=== PATIENT | female | born 1980 | race Caucasian/White ===

== ENCOUNTER 2017-11-27 07:11 | Emergency (ER) | payer OTHER ==
[~2017-11-27] VITALS: Ht 167.6 cm; Wt 76.0 kg
[2017-11-27 07:18] VITALS: BP 125/82; PULSE 123; RESP 20; TEMP 97.9; O2SAT 99
[2017-11-27] MEDS ORDERED: SERO200T PO ×2 (07:24→10:10)
[2017-11-27 07:29] VITALS: BP 137/91; PULSE 109; RESP 19; O2SAT 97
--- NOTE | 2017-11-27 07:50 | PD ---
HPI Chief Complaint: Psychiatric Symptoms Time Seen by Provider: 07:38 Travel History International Travel<30 days: No Contact w/Intl Traveler<30days: No Traveled to known affect area: No History of Present Illness HPI 37-year-old female requesting psychiatric evaluation. Patient states that she has insomnia and hearing voices. Patient has history of bipolar disorder, anxiety and multi-personality disorder. Patient recently has a in the family. Patient states that she is stressing out. Patient denies any headache. Patient denies any chest pain or shortness of breath. Patient denies abdominal pain. Patient denies any medical problem. Patient denies any chance of being . Patient denies alcohol or drug abuse. PFSH Past Medical History Bipolar Disorder: Yes Anxiety: Yes Depression: Yes Cancer: No Cardiovascular Problems: No Diabetes: No Endocrine: No Gastrointestinal Disorders: No Genitourinary: No Hepatitis: No Hiatal Hernia: No Hypertension: No Immune Disorder: No Musculoskeletal: Yes (DEGENERATIVE DISC IN NECK) Neurologic: No Psychiatric: Yes Reproductive: Yes Respiratory: No Immunizations Current: Yes Thyroid Disease: No Tetanus Vaccination: Unknown Influenza Vaccination: Yes ?: Not LMP: 11/2017 Para: 2 Ovarian Cysts: Yes Past Surgical History AICD: No Gynecologic Surgery: Yes Joint Replacement: No Oral Surgery: Yes Pacemaker: No Other Surgery: Yes Social History Alcohol Use: No Tobacco Use: Yes (1/2 PPD) Substance Use: No (hx of ) Allergies-Medications (Allergen,Severity, Reaction): Coded Allergies: penicillin G (Unverified Allergy, Severe, RASH, 11/27/17) MILD RXN LONG AGO tramadol (Unverified Allergy, Severe, NAUSEA, DIARRHEA, 11/27/17) 03/10/13 DENIES ALLERGY Reported Meds & Prescriptions Reported Meds & Active Scripts Active Reported Seroquel (Quetiapine Fumarate) 200 Mg Tab 200 Mg PO BID Review of Systems General / Constitutional: No: Fever Eyes: No: Visual changes HENT: No: Headaches Cardiovascular: No: Chest Pain or Discomfort Respiratory: No: Shortness of Breath Gastrointestinal: No: Abdominal Pain Genitourinary: No: Dysuria Musculoskeletal: No: Pain Skin: No Rash Neurologic: No: Weakness Psychiatric: No: Depression Endocrine: No: Polydipsia Hematologic/Lymphatic: No: Easy Bruising Physical Exam Narrative GENERAL: Well-nourished, well-developed patient. SKIN: Focused skin assessment warm/dry. HEAD: Normocephalic. EYES: No scleral icterus. No injection or drainage. NECK: Supple, trachea midline. No JVD or lymphadenopathy. CARDIOVASCULAR: Regular rate and rhythm without murmurs, gallops, or rubs. RESPIRATORY: Breath sounds equal bilaterally. No accessory muscle use. GASTROINTESTINAL: Abdomen soft, non-tender, nondistended. MUSCULOSKELETAL: No cyanosis, or edema. BACK: Nontender without obvious deformity. No CVA tenderness. Data Data Last Documented VS Vital Signs Date Time Temp Pulse Resp B/P (MAP) Pulse Ox O2 Delivery O2 Flow Rate FiO2 11/27/17 07:29 109 19 137/91 (106) 97 Room Air 11/27/17 07:18 97.9 Orders Orders Complete Blood Count With Diff (11/27/17 07:45) Comprehensive Metabolic Panel (11/27/17 07:45) Thyroid Stimulating Hormone (11/27/17 07:45) Urinalysis - C+S If Indicated (11/27/17 07:45) Psych Screen (11/27/17 07:45) Drug Screen, Random Urine (11/27/17 07:45) Urine Culture (11/27/17 07:50) Labs Laboratory Tests Test 11/27/17 07:50 White Blood Count 7.5 TH/MM3 Red Blood Count 4.76 MIL/MM3 Hemoglobin 15.0 GM/DL Hematocrit 44.8 % Mean Corpuscular Volume 94.1 FL Mean Corpuscular Hemoglobin 31.5 PG Mean Corpuscular Hemoglobin Concent 33.5 % Red Cell Distribution Width 13.4 % Platelet Count 297 TH/MM3 Mean Platelet Volume 8.6 FL Neutrophils (%) (Auto) 55.6 % Lymphocytes (%) (Auto) 33.3 % Monocytes (%) (Auto) 7.2 % Eosinophils (%) (Auto) 3.2 % Basophils (%) (Auto) 0.7 % Neutrophils # (Auto) 4.2 TH/MM3 Lymphocytes # (Auto) 2.5 TH/MM3 Monocytes # (Auto) 0.5 TH/MM3 Eosinophils # (Auto) 0.2 TH/MM3 Basophils # (Auto) 0.0 TH/MM3 CBC Comment DIFF FINAL Differential Comment Urine Color LIGHT-RED Urine Turbidity SLIGHTY CLOUDY Urine pH 5.5 Urine Specific [place] 1.032 Urine Protein 300 OR GREATER mg/dL Urine Glucose (UA) NEG mg/dL Urine Ketones NEG mg/dL Urine Occult Blood LARGE Urine Nitrite POS Urine Bilirubin MOD Urine Urobilinogen 1.0 MG/DL Urine Leukocyte Esterase NEG Urine RBC 89 /hpf Urine WBC 127 /hpf Urine Squamous Epithelial Cells 246 /hpf Urine Amorphous Sediment RARE Urine Bacteria MANY /hpf Urine Mucus MANY /lpf Microscopic Urinalysis Comment CULTURE INDICATED Blood Urea Nitrogen 12 MG/DL Creatinine 0.92 MG/DL Random Glucose 117 MG/DL Total Protein 7.5 GM/DL Albumin 4.1 GM/DL Calcium Level 9.0 MG/DL Alkaline Phosphatase 70 U/L Aspartate Amino Transf (AST/SGOT) 9 U/L Alanine Aminotransferase (ALT/SGPT) 15 U/L Total Bilirubin 0.3 MG/DL Sodium Level 140 MEQ/L Potassium Level 3.9 MEQ/L Chloride Level 107 MEQ/L Carbon Dioxide Level 22.3 MEQ/L Anion Gap 11 MEQ/L Estimat Glomerular Filtration Rate 68 ML/MIN Thyroid Stimulating Hormone 3rd Gen 0.965 uIU/ML Urine Opiates Screen NEG Urine Barbiturates Screen NEG Urine Amphetamines Screen POS Urine Benzodiazepines Screen POS Urine Cocaine Screen NEG Urine Cannabinoids Screen POS MDM Medical Decision Making Medical Screen Exam Complete: Yes Emergency Medical Condition: Yes Interpretation(s) 9:10 AM. CBC within normal limits. CMP within normal limits. TSH normal. Urine drug screen positive for amphetamines, benzodiazepine, cannabis. UA positive for WBC and bacteria. Differential Diagnosis Differential diagnosis includes psychosis, schizophrenia, bipolar disorder, adjustment disorder. Narrative Course 37-year-old female requesting psychiatric evaluation. Patient hearing voices. History of bipolar disorder, anxiety, multiple personality disorder. Bactrim DS 1 tablet p.o. given. Magdaleno Calvillo MD Nov 27, 2017 07:50
[2017-11-27 08:07] LABS: AUTOMATED NEUTROPHIL # 4.2 TH/MM3 (1.8-7.7); BASOPHIL % 0.7 % (0.0-2.0); EOSINOPHIL # 0.2 TH/MM3 (0-0.4); EOSINOPHIL % 3.2 % (0.0-4.0); HEMATOCRIT 44.8 % (35.0-46.0); LYMPH % 33.3 % (9.0-44.0); LYMPHOCYTE # 2.5 TH/MM3 (1.0-4.8); MEAN CELL VOLUME 94.1 FL (80.0-100.0); MEAN CORPUSCULAR HEMOGLOBIN 31.5 PG (27.0-34.0); MEAN CORPUSCULAR HGB CONC 33.5 % (32.0-36.0); MEAN PLATELET VOLUME 8.6 FL (7.0-11.0); MONO % 7.2 % (0.0-8.0); MONOCYTE # 0.5 TH/MM3 (0-0.9); NEUT % 55.6 % (16.0-70.0); PLATELET COUNT 297 TH/MM3 (150-450); RED BLOOD COUNT 4.76 MIL/MM3 (4.00-5.30); RED CELL DISTRIBUTION WIDTH 13.4 % (11.6-17.2); WHITE BLOOD COUNT 7.5 TH/MM3 (4.0-11.0)
[2017-11-27 08:21] LABS: AMORPHOUS SEDIMENT, URINE RARE; BACTERIA, URINE MANY /hpf; BILIRUBIN, URINE MOD (NEG); BLOOD, URINE LARGE (NEG); GLUCOSE,URINE NEG (NEG); KETONE, URINE NEG (NEG); MUCUS URINE MANY /lpf (OCC); NITRITE,URINE POS (NEG); PH, URINE 5.5 (5.0-8.5); SQUAMOUS EPITHELIAL CELL URINE 246 /hpf (0-5); URINE LEUKOCYTE ESTERASE NEG (NEG)
[2017-11-27 08:25] LABS: URINE COLOR LIGHT-RED (YELLW/STRAW)
[2017-11-27 08:27] LABS: ALBUMIN 4.1 GM/DL (3.4-5.0); ALT (GPT) 15 U/L (10-53); AST (GOT) 9 U/L (15-37); BICARBONATE 22.3 MEQ/L (21.0-32.0); BLOOD UREA NITROGEN 12 MG/DL (7-18); CHLORIDE 107 MEQ/L (98-107); CREATININE 0.92 MG/DL (0.50-1.00); GLOMERULAR FILTRATION RATE 68 ML/MIN (>89); GLUCOSE,RANDOM 117 MG/DL (74-106); SODIUM (NA) 140 MEQ/L (136-145)
[2017-11-27 08:37] LABS: ALKALINE PHOSPHATASE 70 U/L (45-117); TOTAL BILIRUBIN ADULT 0.3 MG/DL (0.2-1.0); TOTAL PROTEIN 7.5 GM/DL (6.4-8.2)
[2017-11-27] MEDS ORDERED: SULFAMETHOXAZOLE-TRIMETHOPRIM DS 800-160 MG TAB PO ONE (09:15)
--- NOTE | 2017-11-27 10:08 | PD ---
History of Present Illness Chief Complaint: Psychiatric Symptoms Time Seen by Provider: 10:00 Travel History International Travel<30 Days: No Contact w/Intl Traveler<30days: No Known affected area: No Legal Status Legal Status: Voluntary History of Present Illness: 37-year-old female recently moved to [place] from [place], with a history of bipolar disorder. Presents voluntarily with symptoms of hypomania versus zac. She has not slept for 5 days according to report. She is irritable with her mother. She speaks rapidly and is close to having pressured speech. She is tangential and circumstantial in her thought process. She denies any suicidal or homicidal ideation, plan or intent. However, she may have had the beginning of hallucinations last night which she attributes to a lack of sleep. She and her mother are not wanting admission and the mother is promising to supervise both the patient and the patient's children as they live very close to one another. Patient is willing to take medication to treat her current symptoms and follow-up with [facility] Past Medical History Bipolar Disorder: Yes Anxiety: Yes Depression: Yes Cancer: No Cardiovascular Problems: No Diabetes: No Endocrine: No Gastrointestinal Disorders: No Genitourinary: No Hepatitis: No Hiatal Hernia: No Hypertension: No Immune Disorder: No Musculoskeletal: Yes (DEGENERATIVE DISC IN NECK) Neurologic: No Psychiatric: Yes Reproductive: Yes Respiratory: No Immunizations Current: Yes Thyroid Disease: No Tetanus Vaccination: Unknown Influenza Vaccination: Yes ?: Not LMP: 11/2017 Para: 2 Ovarian Cysts: Yes Past Surgical History AICD: No Gynecologic Surgery: Yes Joint Replacement: No Oral Surgery: Yes Pacemaker: No Other Surgery: Yes Psychiatric History Psychiatric History Hx Psychiatric Treatment: DEPRESSION AND ANXIETY History of Inpatient Treatment: Yes Guns or firearms in home: No Social History Hx Alcohol Use: No Hx Tobacco Use: Yes (1/2 PPD) Hx Substance Use: No (hx of ) Substance Use Type: Crack, Nicotine/Cigarettes Hx of Substance Use Treatment: Yes Allergies-Medications (Allergen,Severity, Reaction): Coded Allergies: penicillin G (Unverified Allergy, Severe, RASH, 11/27/17) MILD RXN LONG AGO tramadol (Unverified Allergy, Severe, NAUSEA, DIARRHEA, 11/27/17) 03/10/13 DENIES ALLERGY Reported Meds & Prescriptions Reported Meds & Active Scripts Active Reported Seroquel (Quetiapine Fumarate) 200 Mg Tab 200 Mg PO BID Review of Systems ROS Limitations: Clinical Condition Psychiatric: COMPLAINS OF: Anxiety, Mood changes, Depression Except as stated in HPI: all other systems reviewed are Neg Mental Status Examination Appearance: Appropriate Consciousness: Alert Orientation: x4 Motor Activity: Normal gait Speech: Rapid Language: Adequate Fund of Knowledge: Adequate Attention and Concentration: Easily Distracted Memory: Unremarkable Mood: Anxious, Irritable Affect: Irritable, Anxious Thought Process & Associations: Circumstantial, Tangential Thought Content: Racing thoughts Hallucination Type: None Delusion Type: None Suicidal Ideation: No Suicidal Plan: No Suicidal Intention: No Homicidal Ideation: No Homicidal Plan: No Homicidal Intention: No Insight: Fair Judgment: Impulsive MDM Medical Decision Making Medical Record Reviewed: Yes Assessment/Plan Patient interviewed at bedside with her mother. Electronic medical record reviewed. Case discussed with nurse. Informed consent provided to prescribe Seroquel, Klonopin and Depakote per patient's request. She will follow-up with [facility] or return to this facility if she gets worse. Orders Orders Complete Blood Count With Diff (11/27/17 07:45) Comprehensive Metabolic Panel (11/27/17 07:45) Thyroid Stimulating Hormone (11/27/17 07:45) Urinalysis - C+S If Indicated (11/27/17 07:45) Psych Screen (11/27/17 07:45) Drug Screen, Random Urine (11/27/17 07:45) Urine Culture (11/27/17 07:50) Sulfamet-Trimeth Ds 800-160 Mg (Bactrim (11/27/17 09:15) Results Vital Signs Date Time Temp Pulse Resp B/P (MAP) Pulse Ox O2 Delivery O2 Flow Rate FiO2 11/27/17 07:29 109 19 137/91 (106) 97 Room Air 11/27/17 07:18 97.9 123 20 125/82 (96) 99 Room Air Laboratory Tests Test 11/27/17 07:50 White Blood Count 7.5 Red Blood Count 4.76 Hemoglobin 15.0 Hematocrit 44.8 Mean Corpuscular Volume 94.1 Mean Corpuscular Hemoglobin 31.5 Mean Corpuscular Hemoglobin Concent 33.5 Red Cell Distribution Width 13.4 Platelet Count 297 Mean Platelet Volume 8.6 Neutrophils (%) (Auto) 55.6 Lymphocytes (%) (Auto) 33.3 Monocytes (%) (Auto) 7.2 Eosinophils (%) (Auto) 3.2 Basophils (%) (Auto) 0.7 Neutrophils # (Auto) 4.2 Lymphocytes # (Auto) 2.5 Monocytes # (Auto) 0.5 Eosinophils # (Auto) 0.2 Basophils # (Auto) 0.0 CBC Comment DIFF FINAL Differential Comment Urine Color LIGHT-RED Urine Turbidity SLIGHTY CLOUDY Urine pH 5.5 Urine Specific [place] 1.032 Urine Protein 300 OR GREATER Urine Glucose (UA) NEG Urine Ketones NEG Urine Occult Blood LARGE Urine Nitrite POS Urine Bilirubin MOD Urine Urobilinogen 1.0 Urine Leukocyte Esterase NEG Urine RBC 89 Urine WBC 127 Urine Squamous Epithelial Cells 246 Urine Amorphous Sediment RARE Urine Bacteria MANY Urine Mucus MANY Microscopic Urinalysis Comment CULTURE INDICATED Blood Urea Nitrogen 12 Creatinine 0.92 Random Glucose 117 Total Protein 7.5 Albumin 4.1 Calcium Level 9.0 Alkaline Phosphatase 70 Aspartate Amino Transf (AST/SGOT) 9 Alanine Aminotransferase (ALT/SGPT) 15 Total Bilirubin 0.3 Sodium Level 140 Potassium Level 3.9 Chloride Level 107 Carbon Dioxide Level 22.3 Anion Gap 11 Estimat Glomerular Filtration Rate 68 Thyroid Stimulating Hormone 3rd Gen 0.965 Urine Opiates Screen NEG Urine Barbiturates Screen NEG Urine Amphetamines Screen POS Urine Benzodiazepines Screen POS Urine Cocaine Screen NEG Urine Cannabinoids Screen POS Date/Time Source Procedure Growth Status 11/27/17 07:50 Urine Random Urine Urine Culture Pending Received Diagnosis Primary Impression: Bipolar disorder Colt Levine MD Nov 27, 2017 10:08
[2017-11-27] MEDS ORDERED: CLON1 PO (10:10)
[2017-11-27] MEDS ORDERED: DEPA500T3 PO (10:11)
== END 2017-11-27 10:41 | disposition left against medical advice (07) ==
LOC: NEPE 07:11
DX: F31.9 Bipolar disorder, unspecified (principal); Z79.899 Other long term (current) drug therapy
CPT/HCPCS: 80053; 80307; 81001; 84443; 85025; 87086; 99284

== ENCOUNTER 2017-11-29 00:25 | Emergency (ER) | payer OTHER ==
[~2017-11-29 00:25] MED LIST: CLON1 PO; DEPA500T3 PO; SERO200T PO
[2017-11-29 00:37] VITALS: BP 112/66; PULSE 91; RESP 16; TEMP 98.8
--- NOTE | 2017-11-29 01:08 | PD ---
HPI Chief Complaint: Alcohol/Drug Intoxication Time Seen by Provider: 00:53 Travel History International Travel<30 days: No Contact w/Intl Traveler<30days: No Traveled to known affect area: No History of Present Illness HPI 37 year 18-year-old old white female presents emergency department under [place] act by PD due to alcohol intoxication. The patient here states that she drinks twice a week. She also takes 200 mg of methadone a day. Patient denies any suicidal homicidal ideation. The patient appears heavily intoxicated and a complete history is not obtainable. PFSH Past Medical History Bipolar Disorder: Yes Anxiety: Yes Depression: Yes Cancer: No Cardiovascular Problems: No Diabetes: No Endocrine: No Gastrointestinal Disorders: No Genitourinary: No Hepatitis: No Hiatal Hernia: No Hypertension: No Immune Disorder: No Musculoskeletal: Yes (DEGENERATIVE DISC IN NECK) Neurologic: No Psychiatric: Yes Reproductive: Yes Respiratory: No Immunizations Current: Yes Thyroid Disease: No ?: Not LMP: 11/25/17 Para: 2 Ovarian Cysts: Yes Past Surgical History AICD: No Gynecologic Surgery: Yes Joint Replacement: No Oral Surgery: Yes Pacemaker: No Other Surgery: Yes Social History Alcohol Use: Yes Tobacco Use: Yes (/2 PPD) Substance Use: No (hx of ) Allergies-Medications (Allergen,Severity, Reaction): Coded Allergies: penicillin G (Unverified Allergy, Severe, RASH, 11/29/17) MILD RXN LONG AGO tramadol (Unverified Allergy, Severe, NAUSEA, DIARRHEA, 11/29/17) 03/10/13 DENIES ALLERGY Reported Meds & Prescriptions Reported Meds & Active Scripts Active Depakote ER (Divalproex Sodium) 500 Mg [place] 500 Mg PO BID Klonopin (Clonazepam) 1 Mg Tab 1 Mg PO HS Reported Seroquel (Quetiapine Fumarate) 200 Mg Tab 200 Mg PO BID Review of Systems ROS Limitations: Intoxication Physical Exam Narrative GENERAL: This is a well-nourished, well-developed patient, in no apparent distress.Patient smells of EtOH appears heavily intoxicated. Speech is very slurred. She is ataxic. SKIN: No rashes, ecchymoses or lesions. Warm and dry. HEAD: Atraumatic. Normocephalic. EYES: PERRL, EOMI, no discharge or injection. No scleral icterus. EARS: Clear NOSE: Nasal turbinates appear normal. THROAT: Mucosa pink and moist. Airway patent. NECK: Trachea midline. supple, moves head freely. LUNGS: Clear to auscultation. CV: Regular in rhythm. ABDOMEN: Soft nontender. EXT: No clubbing cyanosis or edema. Data Data Last Documented VS Vital Signs Date Time Temp Pulse Resp B/P (MAP) Pulse Ox O2 Delivery O2 Flow Rate FiO2 11/29/17 00:37 98.8 91 16 112/66 (81) [facility] Medical Decision Making Medical Screen Exam Complete: Yes Emergency Medical Condition: Yes Medical Record Reviewed: Yes Differential Diagnosis Differential diagnoses: Alcohol intoxication, substance abuse, electrolyte abnormality, malingering Narrative Course The patient states that her mother can pick her up we will make attempts to see if a sober individual can pick her up this evening. If we are unable to the patient will have to sober up here in the ER and when she exhibits sobriety she may be discharged to her own reconnaissance. This is alcohol intoxication, Chronic opiate abuse ( patient takes 200 mg of methadone daily). Diagnosis Primary Impression: Alcohol intoxication Qualified Codes: F10.920 - Alcohol use, unspecified with intoxication, uncomplicated Additional Impression: Chronic opiate abuse Patient Instructions: General Instructions Additional Instructions: Rest. Increase fluids. Avoid alcohol. Avoid illegal substances. Follow-up with [facility] for detox. Do not operate a car or any heavy machinery under the influence of alcohol or drugs. Follow-up with a medical doctor this week. Return to the ER for emergencies Med/Other Pt SpecificInfo: No Meds Exist/No RX given Disposition: 01 DISCHARGE HOME Condition: Stable Dickson Cook Nov 29, 2017 01:08
== END 2017-11-29 09:42 | disposition home or self-care (01) ==
LOC: NEPD 00:25
DX: F10.920 Alcohol use, unspecified with intoxication, uncomplicated (principal); F11.10 Opioid abuse, uncomplicated; F17.210 Nicotine dependence, cigarettes, uncomplicated; F31.9 Bipolar disorder, unspecified
CPT/HCPCS: 99283

== ENCOUNTER 2017-11-29 11:36 | Emergency (ER) | payer SELFPAY ==
[2017-11-29 12:06] VITALS: BP 103/60; PULSE 101; RESP 17; TEMP 97.7; O2SAT 99
--- NOTE | 2017-11-29 13:08 | PD ---
HPI Chief Complaint: Psychiatric Symptoms Time Seen by Provider: 12:26 Travel History International Travel<30 days: No Contact w/Intl Traveler<30days: No Traveled to known affect area: No History of Present Illness HPI Patient is a 37-year-old female presenting to the emergency department voluntarily for psychiatric evaluation. Patient reports a history of manic depression, she states she was diagnosed at 13. She believes that the Seroquel is not at the right dose, she reports that she had been on Seroquel and Xanax which worked well for her. She reports that she was just prescribed Vistaril which did not work for her. She stated that lithium makes her irritated, she has been off of her Xanax for approximately 6 weeks per her report. She also states she has no energy. She denies any chest pain, abdominal pain, fever, chills, nausea, vomiting, headache. Patient states that she did not follow-up with [facility] because she works 40 hours a week and cannot spend 4 days a week in therapy. PFSH Past Medical History Bipolar Disorder: Yes Anxiety: Yes Depression: Yes Genitourinary: No Hepatitis: No Hiatal Hernia: No Hypertension: No Immune Disorder: No Musculoskeletal: Yes Neurologic: No Psychiatric: Yes Reproductive: Yes Respiratory: No Immunizations Current: Yes Thyroid Disease: No Tetanus Vaccination: Unknown ?: Not Para: 2 Ovarian Cysts: Yes Past Surgical History AICD: No Gynecologic Surgery: Yes Joint Replacement: No Oral Surgery: Yes Pacemaker: No Other Surgery: Yes Social History Alcohol Use: Yes Tobacco Use: Yes (1/2 PPD) Substance Use: Yes Allergies-Medications (Allergen,Severity, Reaction): Coded Allergies: penicillin G (Unverified Allergy, Severe, RASH, 11/29/17) MILD RXN LONG AGO tramadol (Unverified Allergy, Severe, NAUSEA, DIARRHEA, 11/29/17) 03/10/13 DENIES ALLERGY Reported Meds & Prescriptions Reported Meds & Active Scripts Active Depakote ER (Divalproex Sodium) 500 Mg [place] 500 Mg PO BID Klonopin (Clonazepam) 1 Mg Tab 1 Mg PO HS Reported Seroquel (Quetiapine Fumarate) 200 Mg Tab 200 Mg PO BID Review of Systems Except as stated in HPI: all other systems reviewed are Neg General / Constitutional: Positive: Other (Fatigue) Psychiatric: Positive: Mood Disorder Physical Exam Narrative GENERAL: Well-developed, well-nourished, disheveled appearing 37-year-old female. In no acute distress. SKIN: Warm and dry. HEAD: Atraumatic. Normocephalic. EYES: Pupils equal and round. No scleral icterus. No injection or drainage. ENT: No nasal bleeding or discharge. Mucous membranes pink and moist. NECK: Trachea midline. No JVD. CARDIOVASCULAR: Regular rate and rhythm. RESPIRATORY: No accessory muscle use. Clear to auscultation. Breath sounds equal bilaterally. GASTROINTESTINAL: Abdomen soft, non-tender, nondistended. Hepatic and splenic margins not palpable. MUSCULOSKELETAL: Extremities without clubbing, cyanosis, or edema. No obvious deformities. NEUROLOGICAL: Awake and alert. No obvious cranial nerve deficits. Motor grossly within normal limits. Five out of 5 muscle strength in the arms and legs. Normal speech. PSYCHIATRIC: Appropriate mood and affect; insight and judgment normal. Tangential thought process. Data Data Last Documented VS Vital Signs Date Time Temp Pulse Resp B/P (MAP) Pulse Ox O2 Delivery O2 Flow Rate FiO2 11/29/17 12:06 97.7 101 17 103/60 (74) 99 Orders Orders Comprehensive Metabolic Panel (11/29/17 12:47) Psych Screen (11/29/17 12:47) Labs Laboratory Tests Test 11/29/17 13:05 Blood Urea Nitrogen 15 MG/DL Creatinine 0.84 MG/DL Random Glucose 75 MG/DL Total Protein 7.1 GM/DL Albumin 4.0 GM/DL Calcium Level 9.0 MG/DL Alkaline Phosphatase 69 U/L Aspartate Amino Transf (AST/SGOT) 14 U/L Alanine Aminotransferase (ALT/SGPT) 16 U/L Total Bilirubin 0.9 MG/DL Sodium Level 142 MEQ/L Potassium Level 3.8 MEQ/L Chloride Level 105 MEQ/L Carbon Dioxide Level 27.2 MEQ/L Anion Gap 10 MEQ/L Estimat Glomerular Filtration Rate 75 ML/MIN [facility] Medical Decision Making Medical Screen Exam Complete: Yes Emergency Medical Condition: Yes Interpretation(s) Vital Signs Date Time Temp Pulse Resp B/P (MAP) Pulse Ox O2 Delivery O2 Flow Rate FiO2 11/29/17 12:06 97.7 101 17 103/60 (74) 99 Differential Diagnosis Mood disorder versus metabolic abnormality versus substance abuse versus malingering versus other Narrative Course Patient is an otherwise well-appearing 37-year-old female presenting for psychiatric evaluation voluntarily. She is not homicidal or suicidal. She is requesting a medication adjustment. She was seen and evaluated on November 27. She was evaluated by Dr. Levine, psychiatrist. Patient was advised to follow-up with [facility]. Patient did not because it is not fitting in with her schedule apparently. Patient states she wants to see a private doctor so she can go once a week. She also reports feeling fatigued. Her urine drug screen was positive for amphetamines, benzodiazepines and marijuana, despite her stating that she was no longer taking any Xanax. Additionally patient was in the emergency department last night brought in as a [place] act after being found intoxicated. Chemistry is unremarkable. Patient is sleeping, in no acute distress. Patient is medically cleared. Diagnosis Primary Impression: Medical clearance for psychiatric admission Condition: Stable Erin Dc Nov 29, 2017 13:08
[2017-11-29 14:07] LABS: AST (GOT) 14 U/L (15-37); BICARBONATE 27.2 MEQ/L (21.0-32.0); BLOOD UREA NITROGEN 15 MG/DL (7-18); CHLORIDE 105 MEQ/L (98-107); CREATININE 0.84 MG/DL (0.50-1.00); GLOMERULAR FILTRATION RATE 75 ML/MIN (>89); GLUCOSE,RANDOM 75 MG/DL (74-106); SODIUM (NA) 142 MEQ/L (136-145)
[2017-11-29 14:12] LABS: ALKALINE PHOSPHATASE 69 U/L (45-117); ALT (GPT) 16 U/L (10-53); TOTAL BILIRUBIN ADULT 0.9 MG/DL (0.2-1.0); TOTAL PROTEIN 7.1 GM/DL (6.4-8.2)
[2017-11-29 18:09] VITALS: BP 103/55; PULSE 68; RESP 16; TEMP 97.5; O2SAT 100
[2017-11-29 22:45] VITALS: BP 91/55; PULSE 75; RESP 17; O2SAT 99
[2017-11-30 02:01] VITALS: BP 89/61; PULSE 59; RESP 18; O2SAT 100
[2017-11-30 02:09] VITALS: BP 94/53; PULSE 76; RESP 18; O2SAT 99
[2017-11-30 06:30] VITALS: BP 102/56; PULSE 82; RESP 17; O2SAT 99
--- NOTE | 2017-11-30 08:15 | PD ---
History of Present Illness Chief Complaint: Psychiatric Symptoms Time Seen by Provider: 07:50 Travel History International Travel<30 Days: No Contact w/Intl Traveler<30days: No Known affected area: No Legal Status Legal Status: Voluntary [place] Act Signed By: siena acted by parents History of Present Illness: History of Present Illness HPI Patient is a 37-year-old female with reported history of bipolar disorder, substance use disorder,mostly opiates presenting to the emergency department voluntarily for psychiatric evaluation. She believes that the Seroquel is not at the right dose, she reports that she had been on Seroquel and Xanax which worked well for her. The patient had been seen earlier in the day after she was brought in by police for public intoxication. The patient was allowed to sober up clinically and was discharged to home. He apparently the patient did not make it home and was at a local business where she was picked up by the police and brought here. No toxicology report available on this visit. Patient was monitored in J pod and presented no behavioral concerns and no suicidality. Electronic medical record is reviewed. The patient has of inpatient psychiatric visit in 2013 at which time she was treated for substance-induced mood disorder, anxiety disorder. Patient is seen this morning in J pod. She was asleep. Awakens with verbal prompting. She states that she has no clear recollection of why the police brought her here to the hospital she does admit that she had been drinking. She also states that she does not now if she lost the prescriptions that were given to her by Dr. Levine on November 27 after she was evaluated in the ED. The patient also tells me that she does not want to follow up with [facility] and that she would like to be followed up by a private psychiatry. The patient' s speech is clear, logical, no pressure. She does not present any evidence of any psychosis, no zac or hypomania. She denies any suicidal or homicidal ideation, intent or plan. In terms of drinking she states that she does not drink every day and that she only drinks maybe 1 time a month. I attempted to contact her mother at number on contact list. No answer and unable to leave a message. PFSH Past Medical History Bipolar Disorder: Yes Anxiety: Yes Depression: Yes Genitourinary: No Hepatitis: No Hiatal Hernia: No Hypertension: No Immune Disorder: No Musculoskeletal: Yes Neurologic: No Psychiatric: Yes Reproductive: Yes Respiratory: No Immunizations Current: Yes Thyroid Disease: No Tetanus Vaccination: Unknown ?: Not Para: 2 Ovarian Cysts: Yes Past Surgical History AICD: No Gynecologic Surgery: Yes Joint Replacement: No Oral Surgery: Yes Pacemaker: No Other Surgery: Yes Psychiatric History Psychiatric History Hx Psychiatric Treatment: DEPRESSION AND ANXIETY Reports history of anxiety, ADHD, and bipolar disorder. Currently patient does not want to go History of Inpatient Treatment: Yes Social History Single,. Lives by herself. Reports has her parents living in the area. Currently unemployed. Hx Alcohol Use: Yes Hx Tobacco Use: Yes (1/2 PPD) Hx Substance Use: Yes Substance Use Type: Alcohol, Nicotine/Cigarettes Other Substances Used: 1/2 PACK A DAY Hx of Substance Use Treatment: No Family Psychiatric History None reported Allergies-Medications (Allergen,Severity, Reaction): Coded Allergies: penicillin G (Unverified Allergy, Severe, RASH, 11/29/17) MILD RXN LONG AGO tramadol (Unverified Allergy, Severe, NAUSEA, DIARRHEA, 11/29/17) 03/10/13 DENIES ALLERGY Reported Meds & Prescriptions Reported Meds & Active Scripts Active Depakote ER (Divalproex Sodium) 500 Mg Elton 500 Mg PO BID Klonopin (Clonazepam) 1 Mg Tab 1 Mg PO HS Reported Seroquel (Quetiapine Fumarate) 200 Mg Tab 200 Mg PO BID Review of Systems Psychiatric: COMPLAINS OF: Anxiety Mental Status Examination Appearance: Disheveled Consciousness: Alert Orientation: x4 Motor Activity: Normal gait Speech: Unremarkable Language: Adequate Fund of Knowledge: Adequate Attention and Concentration: Adequate Memory: Unremarkable Mood: Appropriate Affect: Appropriate Thought Process & Associations: Intact, Logical, Goal directed Thought Content: Appropriate Hallucination Type: None Delusion Type: None Suicidal Ideation: No Suicidal Plan: No Suicidal Intention: No Homicidal Ideation: No Homicidal Plan: No Homicidal Intention: No Insight: Poor Judgment: Impulsive MDM Medical Decision Making Medical Record Reviewed: Yes Assessment/Plan Patient is a 37-year-old female with reported history of bipolar disorder, substance use disorder,mostly opiates presenting to the emergency department voluntarily for psychiatric evaluation. She believes that the Seroquel is not at the right dose, she reports that she had been on Seroquel and Xanax which worked well for her. The patient had been seen earlier in the day after she was brought in by police for public intoxication. The patient was allowed to sober up clinically and was discharged to home. Apparently the patient never made it home and stayed at a local business where she was picked up by the police. She did admit that she had been drinking earlier during the day. No blood alcohol level is reported. At this time the patient is clinically sober. There is no evidence of any psychosis, no zac or hypomania. She denies any suicidal or homicidal ideation, intent or plan. The patient does not want to follow up with [facility] she would rather follow-up with a private psychiatrist. The patient will be discharge to home. She will arrange for home follow up with outpatient psychiatrist of her choice. [place] Bagger on abstinence from alcohol Orders Orders Comprehensive Metabolic Panel (11/29/17 12:47) Psych Screen (11/29/17 12:47) Diet Regular Basic (11/30/17 Breakfast) Results Vital Signs Date Time Temp Pulse Resp B/P (MAP) Pulse Ox O2 Delivery O2 Flow Rate FiO2 11/30/17 06:30 82 17 102/56 (71) 99 Room Air 11/30/17 02:09 76 18 94/53 (67) 99 Room Air 11/30/17 02:01 59 18 89/61 (70) 100 Room Air 11/29/17 22:45 75 17 91/55 (67) 99 Room Air 11/29/17 18:09 97.5 68 16 103/55 (71) 100 Room Air 11/29/17 12:06 97.7 101 17 103/60 (74) 99 Laboratory Tests Test 11/29/17 13:05 Blood Urea Nitrogen 15 Creatinine 0.84 Random Glucose 75 Total Protein 7.1 Albumin 4.0 Calcium Level 9.0 Alkaline Phosphatase 69 Aspartate Amino Transf (AST/SGOT) 14 Alanine Aminotransferase (ALT/SGPT) 16 Total Bilirubin 0.9 Sodium Level 142 Potassium Level 3.8 Chloride Level 105 Carbon Dioxide Level 27.2 Anion Gap 10 Estimat Glomerular Filtration Rate 75 Diagnosis Primary Impression: Substance use disorder Psychiatrically Cleared: Yes Med/ Other Pt Specific Info: No Change to Meds Disposition: 01 DISCHARGE HOME Condition: Stable Tari Villalobos Nov 30, 2017 08:14
--- NOTE | 2017-11-30 08:25 | PD ---
Physical Exam Date Seen by Provider: Nov 30, 2017 Time Seen by Provider: 08:23 Narrative For full history and physical examination please see previous providers note. Data Data Last Documented VS Vital Signs Date Time Temp Pulse Resp B/P (MAP) Pulse Ox O2 Delivery O2 Flow Rate FiO2 11/30/17 06:30 82 17 102/56 (71) 99 Room Air 11/29/17 18:09 97.5 Orders Orders Comprehensive Metabolic Panel (11/29/17 12:47) Psych Screen (11/29/17 12:47) Diet Regular Basic (11/30/17 Breakfast) Ed Discharge Order (11/30/17 08:22) Labs Laboratory Tests Test 11/29/17 13:05 Blood Urea Nitrogen 15 MG/DL Creatinine 0.84 MG/DL Random Glucose 75 MG/DL Total Protein 7.1 GM/DL Albumin 4.0 GM/DL Calcium Level 9.0 MG/DL Alkaline Phosphatase 69 U/L Aspartate Amino Transf (AST/SGOT) 14 U/L Alanine Aminotransferase (ALT/SGPT) 16 U/L Total Bilirubin 0.9 MG/DL Sodium Level 142 MEQ/L Potassium Level 3.8 MEQ/L Chloride Level 105 MEQ/L Carbon Dioxide Level 27.2 MEQ/L Anion Gap 10 MEQ/L Estimat Glomerular Filtration Rate 75 ML/MIN MDM Medical Record Reviewed: Yes Supervised Visit with SHAUNA: No Narrative Course Patient is a 37-year-old female that presented to emerge department voluntarily for psychiatric evaluation. She was seen and evaluated emergency department, medically cleared. Patient was then seen and evaluated with the psychiatric nurse practitioner. Patient will be discharged with a diagnosis of bipolar disorder. Patient is to follow-up with [facility]. Patient stable for discharge. Diagnosis Primary Impression: Bipolar disorder Qualified Codes: F31.9 - Bipolar disorder, unspecified Referrals: [facility] Patient Instructions: Bipolar Disorder (ED), General Instructions Additional Instruction: Follow-up with [facility] Follow-up with a primary doctor or at the [facility] Continue medications as previously prescribed Return to emergency department for any new or worsening symptoms Med/Other Pt SpecificInfo: No Change to Meds Disposition: 01 DISCHARGE HOME Condition: Stable Erin Dc Nov 30, 2017 08:25
== END 2017-11-30 08:36 | disposition home or self-care (01) ==
LOC: NEPD 11:36 → NEPJ 11-30 08:36
DX: F31.9 Bipolar disorder, unspecified (principal); F19.10 Other psychoactive substance abuse, uncomplicated; F17.210 Nicotine dependence, cigarettes, uncomplicated
CPT/HCPCS: 80053; 99284